=== PATIENT | female | born 1995 | race Caucasian/White ===

== ENCOUNTER 2020-01-19 12:16 | Emergency (ER) | payer OTHER ==
[~2020-01-19] VITALS: Ht 162.6 cm; Wt 108.9 kg
[~2020-01-19 12:16] MED LIST: BIRTH CONTROL PO; HYDACE5325 PO; PRENATAL TABLE1 EAC2 PO; [UNRECOGNIZED DRUG - REMARK]; [UNRECOGNIZED DRUG - SUPPLY] TP
== END 2020-01-19 12:59 | disposition home or self-care (01) ==
LOC: ER 12:16
DX: L08.9 Local infection of the skin and subcutaneous tissue, unspecified (principal); Z88.2 Allergy status to sulfonamides; Z91.09 Other allergy status, other than to drugs and biological substances
CPT/HCPCS: 10160; 99282-25

== ENCOUNTER → 2020-02-27 | Outpatient (CLI) | payer OTHER | LOC: LAB 16:02 → LAB SHORT 16:02 | DX: O26.93 Pregnancy related conditions, unspecified, third trimester (principal); Z3A.35 35 weeks gestation of pregnancy | CPT/HCPCS: 87081; 87150 ==

== ENCOUNTER 2020-03-30 01:47 | Inpatient (IN) | payer OTHER ==
[~2020-03-30] VITALS: Ht 162.6 cm; Wt 112.0 kg
[2020-03-30 02:53] LABS: BASOPHILS ABSOLUTE AUTO 0.01 K/mm3 (0.00-0.23); BASOPHILS PERCENT AUTO 0 % (0-2); EOSINOPHILS PERCENT AUTO 0 % (0-6); Hematocrit 33.4 % (33.0-51.0); Hemoglobin 11.3 g/dL (11.5-16.0); IMMATURE GRAN ABSOLUTE AUTO 0.04 K/mm3 (0.00-0.10); IMMATURE GRAN PERCENT AUTO 0 % (0-1); LYMPHOCYTES ABSOLUTE AUTO 1.93 K/mm3 (0.84-5.20); LYMPHOCYTES PERCENT AUTO 14 % (21-46); MONOCYTES ABSOLUTE AUTO 0.47 K/mm3 (0.16-1.47); MONOCYTES PERCENT AUTO 3 % (4-13); Mean Corpuscular HGB Conc 33.8 g/dL (31.5-36.5); Mean Corpuscular Volume 92 fL (80-100); Mean Platelet Volume 10.7 fL (9.1-12.4); NEUTROPHILS PERCENT AUTO 82 % (41-73); Platelet Count 194 K/mm3 (150-400); RDW Coefficient Variation 13.7 % (11.7-14.2); RDW Standard Deviation 45.9 fL (35.1-46.3); Red Blood Cell Count 3.64 M/mm3 (3.80-5.20); White Blood Cell Count 13.65 K/mm3 (4.00-11.30)
[2020-03-30 03:30] LABS: Influenza A, PCR NEGATIVE (NEGATIVE); Influenza B, PCR NEGATIVE (NEGATIVE); Resp Syncytial Virus, PCR NEGATIVE (NEGATIVE); SARS-Cov-2 (COVID-19) PCR, MMC NEGATIVE (NEGATIVE)
--- NOTE | 2020-03-30 20:31 | NUR ---
03/30/202030 Bertha Downs A PATIENT CAME TO OR WITH SAINZ CATHETER IN PLACE. SEGMENT OF UMBILICAL CORD GIVEN TO FBP RN. SAMPLE OF BLOOD FROM UMBILICAL CORD GIVEN TO FBP RN.
[2020-03-30 21:21] LABS: PCO2 Cord - Arterial 52.2 mmHg (40-50); PO2 Cord - Arterial < 13 mmHg (16-20); pH Cord - Arterial 7.21 (7.28-7.35)
[2020-03-30 21:23] LABS: PCO2 Cord - Venous 38.8 mmHg (40-50); PO2 Cord - Venous 22.4 mmHg (28-32); pH Umbilical Cord - Venous 7.32 (7.26-7.35)
--- NOTE | 2020-03-31 03:07 | NUR ---
[id number] FROM Arlene TELLEZ RN, ASSUMED CARE OF PT AT THIS TIME. 0130: PT REQUESTING TO GET OUT OF BED TO GO SEE NB IN [facility]. PT ASSISTED OUT OF BED TO WHEELCHAIR WITH STAFF STANDBY ASSIST AND TAKEN TO [facility]UR[facility]ERY. 0215:PT RETURNED TO ROOM AND ASSISTED BACK TO BED WITH STAFF STANDBY ASSIST.
[2020-03-31 05:38] LABS: BASOPHILS ABSOLUTE AUTO 0.02 K/mm3 (0.00-0.23); BASOPHILS PERCENT AUTO 0 % (0-2); EOSINOPHILS PERCENT AUTO 0 % (0-6); IMMATURE GRAN ABSOLUTE AUTO 0.07 K/mm3 (0.00-0.10); IMMATURE GRAN PERCENT AUTO 0 % (0-1); LYMPHOCYTES ABSOLUTE AUTO 1.87 K/mm3 (0.84-5.20); LYMPHOCYTES PERCENT AUTO 11 % (21-46); MONOCYTES ABSOLUTE AUTO 0.33 K/mm3 (0.16-1.47); MONOCYTES PERCENT AUTO 2 % (4-13); Mean Corpuscular HGB 31.1 pg (26.0-34.0); Mean Corpuscular HGB Conc 33.3 g/dL (31.5-36.5); Mean Corpuscular Volume 93 fL (80-100); Mean Platelet Volume 10.8 fL (9.1-12.4); NEUTROPHILS ABSOLUTE AUTO 15.09 K/mm3 (1.96-9.15); NEUTROPHILS PERCENT AUTO 87 % (41-73); Platelet Count 177 K/mm3 (150-400); RDW Coefficient Variation 14.2 % (11.7-14.2); RDW Standard Deviation 47.8 fL (35.1-46.3); Red Blood Cell Count 2.89 M/mm3 (3.80-5.20); White Blood Cell Count 17.38 K/mm3 (4.00-11.30)
--- NOTE | 2020-03-31 16:22 | NUR ---
UP TO SHOWER. TOLERATING WELL. LINEN CHANGED. PAD AND UNDERWEAR GIVEN.
--- NOTE | 2020-03-31 17:20 | NUR ---
UP TO W/C TO SEE IN [facility]
--- NOTE | 2020-04-01 15:26 | NUR ---
PT D/C TO BOARDER TO STATUS, NB IN NURSERY, MOM PUMPING AND VISITNG BABY IN NURSERY, D/C INSTRUCTIONS REVIEWED AND QUESTIONS ANSWERED. MOM INSTRUCTED TO CALL SCHDULE POST APPOINTMENT WITH PROVIDER IN 4-6WKS. SL D/C. PPFU NEEDS TO BE SCHDULED.
--- NOTE | 2020-04-01 15:57 | NUR ---
RN/LC ROUNDED TO HELP W/ PUMPING. NB IN SCN. INSTRUCT/DEMO CORRECT PUMP SETTINGS AND FREQUENCY. PT DENIES ANY FURTHER QUESTIONS OR CONCERNS. PT WAS GIVEN A PUMP YESTERDAY, DID NOT PUMP OR ATTEMPT TO LATCH NB YESTERDAY. PT STATES SHE HAS PUMPED A COUPLY OF TIMES, HAS LOGGED ONE TIME ON HER LOG SHEET. PT VERBALIZED UNDERSTANDING OF HOW TO USE PUMP, PUMP SETTINGS AND FREQUENCY OF PUMPING. RN/LC ENCOURGED PATIENT TO ASK FOR HELP IF SHE NEEDS IT AND TO SET AND ALARM ON HER PHONE TO REMIND HER TO PUMP. INSTRUCTED TO BREASTFEED NB FIRST IF NB IS DUE TO FEED AND TO ALWAYS PUMP AFTER NB FEEDS. PT VERBALIZED UNDERSTANDING AND DENIES ANY FURTHER QUESTIONS OR CONCERNS.
== END 2020-04-01 18:04 | disposition home or self-care (01) | DRG 788 ==
LOC: OBS 01:47 → BC 01:47 → OBS 02:21 → BC 02:22
PROVIDERS: Family Medicine; ADMIT Obstetrics & Gynecology
PROC: 10D00Z1 Extraction of Products of Conception, Low, Open Approach (ICD-10-PCS; principal; 2020-03-30 19:30)
DX: O32.9XX0 Maternal care for malpresentation of fetus, unspecified, not applicable or unspecified (principal); O62.1 Secondary uterine inertia; O66.5 Attempted application of vacuum extractor and forceps; Z3A.40 40 weeks gestation of pregnancy; Z37.0 Single live birth; Z20.822 Contact with and (suspected) exposure to COVID-19; O99.214 Obesity complicating childbirth; E66.01 Morbid (severe) obesity due to excess calories
CPT/HCPCS: 0241U; 36415; 51702; 82803; 85025; 86850; 86900; 86901; A9270; J0694; J1885; J2001; J2250; J2405; J2590; J2765; J3010; J7120

== ENCOUNTER → 2022-10-01 | Outpatient (CLI) | payer OTHER ==
[2022-10-01 18:22] LABS: BASOPHILS ABSOLUTE AUTO 0.01 K/mm3 (0.00-0.23); BASOPHILS PERCENT AUTO 0 % (0-2); EOSINOPHILS ABSOLUTE AUTO 0.12 K/mm3 (0.00-0.68); EOSINOPHILS PERCENT AUTO 2 % (0-6); Hematocrit 43.7 % (33.0-51.0); IMMATURE GRAN ABSOLUTE AUTO 0.02 K/mm3 (0.00-0.10); IMMATURE GRAN PERCENT AUTO 0 % (0-1); LYMPHOCYTES ABSOLUTE AUTO 2.38 K/mm3 (0.84-5.20); LYMPHOCYTES PERCENT AUTO 34 % (21-46); MONOCYTES ABSOLUTE AUTO 0.28 K/mm3 (0.16-1.47); MONOCYTES PERCENT AUTO 4 % (4-13); Mean Corpuscular HGB 30.9 pg (26.0-34.0); Mean Corpuscular Volume 97 fL (80-100); Mean Platelet Volume 10.5 fL (9.1-12.4); NEUTROPHILS ABSOLUTE AUTO 4.25 K/mm3 (1.96-9.15); NEUTROPHILS PERCENT AUTO 60 % (41-73); Platelet Count 326 K/mm3 (150-400); RDW Standard Deviation 49.5 fL (35.1-46.3); Red Blood Cell Count 4.53 M/mm3 (3.80-5.20); White Blood Cell Count 7.06 K/mm3 (4.00-11.30)
[2022-10-01 18:42] LABS: Alanine Aminotransfer (ALT/SGP 47 U/L (12-78); Albumin, Blood 3.8 g/dL (3.4-5.0); Albumin/Globulin Ratio 0.9 (0.8-1.8); Alk Phos 80 U/L (50-136); Anion Gap 6 mmol/L (6-16); Aspartate Aminotrans (AST/SGOT 29 U/L (12-37); Bilirubin, Total 0.3 mg/dL (0.1-1.0); Blood Urea Nitrogen 6 mg/dL (8-24); CHOL/HDL RATIO 3.8; CO2, Blood 24 mmol/L (21-32); Calcium, Blood 9.2 mg/dL (8.5-10.1); Chloride, Blood 108 mmol/L (98-108); Cholesterol 184 mg/dL (50-200); Globulin, Blood 4.1 g/dL (2.2-4.0); Glomerular Filtration Rate 125 (60-); Glucose, Blood 95 mg/dL (70-99); HDL Cholesterol 49 mg/dL (>39); LDL/HDL RATIO 2.2; Low Density Lipoprotein Chol 106 mg/dL (0-110); Potassium, Blood 4.1 mmol/L (3.5-5.5); Sodium, Blood 138 mmol/L (136-145); Total Protein, Blood 7.9 g/dL (6.4-8.2); Triglycerides 146 mg/dL (30-140); Very Low Density Lipoprot Chol 29 mg/dL (6-28)
== END | disposition home or self-care (01) ==
LOC: LAB 09:15 → LAB SHORT 09:15
PROVIDERS: Family Medicine
DX: Z00.00 Encounter for general adult medical examination without abnormal findings (principal); E78.5 Hyperlipidemia, unspecified; R03.0 Elevated blood-pressure reading, without diagnosis of hypertension
CPT/HCPCS: 80053; 80061; 84443; 85025

== ENCOUNTER 2024-05-25 20:00 | Emergency (ER) | payer OTHER ==
[~2024-05-25] VITALS: Ht 165.1 cm; Wt 111.1 kg
[2024-05-25 20:08] VITALS: BP 139/92
[2024-05-25] MEDS ORDERED: Diphth,Pertuss(Acell),Tet Vac 0.5 ML VIAL IM ONE (20:20)
== END 2024-05-25 21:01 | disposition home or self-care (01) ==
LOC: ER 20:00
DX: S61.213A Laceration without foreign body of left middle finger without damage to nail, initial encounter (principal); Z88.2 Allergy status to sulfonamides; Z91.048 Other nonmedicinal substance allergy status; Z79.899 Other long term (current) drug therapy
CPT/HCPCS: 12001; 90471; 90715; 99282-25